=== PATIENT | male | born 2000 | race African-American/Black ===

== ENCOUNTER 2021-09-15 23:32 | Emergency (ER) | payer OTHER ==
[2021-09-15 23:41] VITALS: TEMP 98.8
[2021-09-16] MEDS ORDERED: hydrOXYzine HCL 25 MG TAB PO STA (00:03)
--- NOTE | 2021-09-16 00:16 | ED ---
Anxiety HPI - General Chief Complaint: Anxiety Stated Complaint: not feeling right, poss anxiety Time Seen by Provider: 09/15/21 23:48 Source: patient, RN notes reviewed Mode of arrival: ambulatory - History of Present Illness Initial Comments: This is a pleasant 21-year-old male who presents to emergency department complaining of anxious feeling. Patient states he felt like he was shaky and then had some tingling which started in his hands and then went throughout his body. This occurred while he and his girlfriend driving a car. Patient denies any new ingestions. Patient denies any chest pain. No fever or chills. Patient is admitting to smoking marijuana at a [employer] earlier tonight and drinking a small amount of alcohol. However he states this was not anything out of the ordinary. Patient denies any increased stress although he states he just received 2 job offers. No headache, no fever or chills, no changes in vision or hearing, no sore throat or difficulty with speech, no neck pain, no chest pain or shortness of breath, no abdominal pain, no nausea or vomiting, no changes in urination or bowel movements,, no extremity pain, no skin rashes or lesions. Patient has no significant past medical history. Takes no prescription medi cations. MD Complaint: anxiety - Related Data Home Medications: Previous Rx's Medication Instructions Recorded hydrOXYzine HCL 25 mg PO Q8HR PRN #24 tab 09/16/21 Allergies/Adverse Reactions: Allergies Allergy/AdvReac Type Severity Reaction Status Date / Time No Known Allergies Allergy Verified 09/16/21 00:06 Review of Systems ROS Statement: Those systems with pertinent positive or pertinent negative responses have been documented in the HPI. ROS Other: All systems not noted in ROS Statement are negative. Past Medical History Past Medical History: No Reported History History of Any Multi-Drug Resistant Organisms: None Reported Additional Past Surgical History / Comment(s): wrist sx Past Psychological History: No Psychological Hx Reported Smoking Status: Current every day smoker, Vaper Past Alcohol Use History: Occasional Past Drug Use History: Marijuana General Exam - General Exam Comments Initial Comments: Patient does not appear to be ill or toxic. Mildly anxious. Vital signs reviewed. Patient noted to be tachycardic. Adequate peripheral perfusion. Afebrile. Moist mucous are membranes General appearance: anxious Head exam: Present: atraumatic, normocephalic, normal inspection Eye exam: Present: normal appearance, PERRL, EOMI. Absent: scleral icterus, conjunctival injection, periorbital swelling ENT exam: Present: normal exam, mucous membranes moist Neck exam: Present: normal inspection, full ROM. Absent: tenderness, meningismus, lymphadenopathy Respiratory exam: Present: normal lung sounds bilaterally. Absent: respiratory distress, wheezes, rales, rhonchi, stridor, chest wall tenderness, accessory muscle use Cardiovascular Exam: Present: regular rate, normal rhythm, normal heart sounds. Absent: systolic murmur, diastolic murmur, rubs, gallop, clicks GI/Abdominal exam: Present: soft, normal bowel sounds. Absent: distended, tenderness, guarding, rebound, rigid Extremities exam: Present: normal inspection, full ROM, normal capillary refill. Absent: tenderness, pedal edema, joint swelling, calf tenderness Back exam: Present: normal inspection Neurological exam: Present: alert, oriented X3, CN II-XII intact, normal gait. Absent: abnormal gait, motor sensory deficit Psychiatric exam: Present: normal affect, anxious (Mild) Skin exam: Present: warm, dry, intact, normal color. Absent: rash Course Vital Signs 09/15/21 23:35 Temperature 98.8 F Pulse Rate 116 H Respiratory 18 Rate Blood Pressure 158/81 O2 Sat by Pulse 100 Oximetry - Reevaluation(s) Reevaluation #1: 09/16/21 01:05 Medical record is reviewed Symptoms are improved here in the emergency department Patient is informed of results and questions answered Patient in no distress Medical Decision Making - Medical Decision Making Patient septostomy most consistent with an anxiety/panic attack. However patient states he is starting to feel better at this time. Patient did have some tingling which started in his extremities. No evaluate the patient for possible electrolyte disturbance. We'll order an EKG. Patient does not appear to be ill or toxic. This is unlikely be other etiologies such as infectious process. Patient did smoke marijuana and drink a small amount of alcohol, one drink prior to arrival however this is not a urinary the patient. On likely to be related to this. However, we'll add on a drug screen. The case was discussed in detail with ED attending physician. Presentation, findings, treatment plan discussed in detail. Patient did have mild diminished potassium level. We'll replace. This is likely related to the hyperventilation syndrome that the patient had experienced Party Plan Sales Host/Hostess with Dr. Sher - Lab Data Result diagrams: 09/16/21 00:25 09/16/21 00:25 Lab Results 09/16/21 09/16/21 09/16/21 Range/Units 00:25 00:25 00:25 WBC 8.0 (3.8-10.6) k/uL RBC 4.18 L (4.30-5.90) m/uL Hgb 12.7 L (13.0-17.5) gm/dL Hct 38.5 L (39.0-53.0) % MCV 92.1 (80.0-100.0) fL MCH 30.4 (25.0-35.0) pg MCHC 33.0 (31.0-37.0) g/dL RDW 13.1 (11.5-15.5) % Plt Count 193 (150-450) k/uL MPV 7.5 Neutrophils % 37 % Lymphocytes % 48 % Monocytes % 6 % Eosinophils % 5 % Basophils % 2 % Neutrophils # 3.0 (1.3-7.7) k/uL Lymphocytes # 3.8 (1.0-4.8) k/uL Monocytes # 0.5 (0-1.0) k/uL Eosinophils # 0.4 (0-0.7) k/uL Basophils # 0.1 (0-0.2) k/uL Sodium 141 (137-145) mmol/L Potassium 3.4 L (3.5-5.1) mmol/L Chloride 103 (98-107) mmol/L Carbon Dioxide 25 (22-30) mmol/L Anion Gap 13 mmol/L BUN 13 (9-20) mg/dL Creatinine 0.97 (0.66-1.25) mg/dL Est GFR (CKD-EPI)AfAm >90 (>60 ml/min/1.73 sqM) Est GFR (CKD-EPI)NonAf >90 (>60 ml/min/1.73 sqM) Glucose 104 H (74-99) mg/dL Calcium 9.9 (8.4-10.2) mg/dL Magnesium 1.9 (1.6-2.3) mg/dL Urine Opiates Screen Not Detected (NotDetected) Ur Oxycodone Screen Not Detected (NotDetected) Urine Methadone Screen Not Detected (NotDetected) Ur Propoxyphene Screen Not Detected (NotDetected) Ur Barbiturates Screen Not Detected (NotDetected) U Tricyclic Antidepress Not Detected (NotDetected) Ur Phencyclidine Scrn Not Detected (NotDetected) Ur Amphetamines Screen Not Detected (NotDetected) U Methamphetamines Scrn Not Detected (NotDetected) U Benzodiazepines Scrn Not Detected (NotDetected) Urine Cocaine Screen Not Detected (NotDetected) U Marijuana (THC) Screen Detected H (NotDetected) - EKG Data -: EKG Interpreted by Ne EKG Comments: EKG done at 12:09 AM and read by the ED attending physician reveals sinus rhythm with sinus arrhythmia, rate of 98, normal axis, no acute ST or T-wave changes. Normal intervals. Disposition Clinical Impression: Hyperventilation, Hypokalemia, Panic attack, Marijuana use Disposition: HOME SELF-CARE Condition: Poor Instructions (If sedation given, give patient instructions): Panic Attack (ED), Potassium Content of Foods List (ED) Additional Instructions: The case was discussed in detail with ED attending physician. Presentation, findings, treatment plan discussed in detail. Is patient prescribed a controlled substance at d/c from ED?: No Referrals: Андрей Gabriel MD [STAFF PHYSICIAN] - 09/20/21 Time of Disposition: 01:06
[2021-09-16 00:42] LABS: Basophils # (A) 0.1 k/uL (0-0.2); Basophils % (A) 2 %; Eosinophils # (A) 0.4 k/uL (0-0.7); Eosinophils % (A) 5 %; HCT 38.5 % (39.0-53.0); HGB 12.7 gm/dL (13.0-17.5); Lymphocytes # (A) 3.8 k/uL (1.0-4.8); Lymphocytes % (A) 48 %; MCH 30.4 pg (25.0-35.0); MCV 92.1 fL (80.0-100.0); Mean Platelet Volume 7.5; Monocytes # (A) 0.5 k/uL (0-1.0); Monocytes % (A) 6 %; Neutrophils % (A) 37 %; Platelet Count 193 k/uL (150-450); RBC 4.18 m/uL (4.30-5.90); RDW 13.1 % (11.5-15.5)
[2021-09-16 00:54] LABS: Amphetamine Screen,Urine Not Detected (NotDetected); Barbiturate Screen,Urine Not Detected (NotDetected); Benzodiazepines Screen,Urine Not Detected (NotDetected); Cocaine Screen,Urine Not Detected (NotDetected); Methadone Screen, Urine Not Detected (NotDetected); Opiate Screen,Urine Not Detected (NotDetected); Oxycodone Screen, Urine Not Detected (NotDetected); Phencyclidine Screen,Urine Not Detected (NotDetected); Tricyclic Antidepressant,Urine Not Detected (NotDetected); Urn Cannabinoid Scrn Detected (NotDetected)
[2021-09-16 00:59] LABS: African American GFR (CKD) >90 (>60 ml/min/1.73 sqM); Anion Gap 13 mmol/L; Blood Urea Nitrogen 13 mg/dL (9-20); Calcium 9.9 mg/dL (8.4-10.2); Carbon Dioxide 25 mmol/L (22-30); Chloride 103 mmol/L (98-107); Glucose 104 mg/dL (74-99); Magnesium 1.9 mg/dL (1.6-2.3); Non-African American GFR(CKD) >90 (>60 ml/min/1.73 sqM); Potassium 3.4 mmol/L (3.5-5.1); Sodium 141 mmol/L (137-145)
[2021-09-16] MEDS ORDERED: POTASSIUM CHLORIDE ER 20 MEQ TAB.ER PO STA (01:05)
[2021-09-16 01:17] VITALS: BP 144/95; PULSE 83; RESP 16
== END 2021-09-16 01:16 | disposition home or self-care (01) ==
LOC: EC 23:32
DX: R06.4 Hyperventilation (principal); E87.6 Hypokalemia; F41.0 Panic disorder [episodic paroxysmal anxiety]; F12.90 Cannabis use, unspecified, uncomplicated; F17.290 Nicotine dependence, other tobacco product, uncomplicated
CPT/HCPCS: 36415; 80048; 80306; 83735; 85025; 93005; 99283